=== PATIENT | male | born 1990 | race Hispanic/Latino ===

== ENCOUNTER 2017-06-25 04:24 | Emergency (ER) | payer OTHER, SELFPAY ==
[2017-06-25] MEDS ORDERED: Sodium Chloride Irrig Solution 250 ML BOT ONE (07:00)
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
== END 2017-06-25 07:35 | disposition home or self-care (01) ==
LOC: MADERS 04:24
DX: S43.402A Unspecified sprain of left shoulder joint, initial encounter (principal); S13.9XXA Sprain of joints and ligaments of unspecified parts of neck, initial encounter; V49.9XXA Car occupant (driver) (passenger) injured in unspecified traffic accident, initial encounter
CPT/HCPCS: 70450; 72125; 72128